=== PATIENT | male | born 1960 | race Caucasian/White ===

== ENCOUNTER 2017-05-20 21:10 | Emergency (ER) | payer MEDICAID ==
[2017-05-20 22:01] LABS: % BASOPHILS 0.1 % (0.0-2.0); % EOSINOPHILS 4.6 % (0.0-5.0); % LYMPHOCYTES 34.4 % (20.0-50.0); % MONOCYTES 11.3 % (2.0-10.0); % NEUTROPHILS 49.6 % (40.0-80.0); HEMOGLOBIN 12.1 gm/dL (13.2-17.3); MEAN CELL VOLUME 89.3 fl (80-99); MEAN CORPUSCULAR HGB CONC 34.7 pg (28.0-36.0); MEAN PLATELET VOLUME 7.5 fl; NEUTROPHILE ABSOLUTE 3.8 Th/cmm (1.8-8.0); PLATELET COUNT 276 Th/cmm (150-400); RED BLOOD COUNT 3.92 Mil/cmm (4.30-5.70); RED CELL DISTRIBUTION WIDTH 12.6 % (11.5-20.0)
[2017-05-20 22:03] LABS: WHITE BLOOD COUNT 7.5 Th/cmm (4.8-10.8)
--- NOTE | 2017-05-20 22:14 | ED Physician Chart ---
Chief Complaint/HPI - Patient Information Date Seen:: 05/20/17 Time Seen:: 21:21 Chief Complaint:: ABDOMINAL PAIN History of Present Illness:: THIS IS A 56 YO MALE WHO STATES THAT HE HAS A HERNIA AND IT IS CAUSING HIM PAIN. HE DENIES FEVER, NAUSEA AND VOMITING. Allergies:: Allergies Allergy/AdvReac Type Severity Reaction Status Date / Time morphine Allergy Verified 05/20/17 21:22 Vitals:: Vital Signs - 8 hr 05/20/17 21:15 Temp 98.1 F HR 71 RR 18 BP 129/79 O2 Sat % 99 Historian:: Patient Review:: Nurse's Note Reviewed, Old Chart Reviewed, Transfer documents Reviewed Review of Systems - Review of Systems General/Constitutional: No fever, No chills, No weight loss, No weakness, No diaphoresis, No edema, No loss of appetite Skin: No skin lesions, No rash, No bruising Head: No headache, No light-headedness Eyes: No loss of vision, No pain, No diplopia ENT: No earache, No nasal drainage, No sore throat, No tinnitus Neck: No neck pain, No swelling, No thyromegaly, No stiffness, No mass noted Cardio Vascular: No chest pain, No palpitations, No PND, No orthopnea, No edema Pulmonary: No SOB, No cough, No sputum, No wheezing GI: No nausea, No vomiting, No diarrhea, Pain, No melena, No hematochezia, No constipation, No hematemesis, Other (RIGHT INQUINAL HERNIA ) G/U: No dysuria, No frequency, No hematuria Musculoskeletal: No bone or joint pain, No back pain, No muscle pain Endocrine: No polyuria, No polydipsia Psychiatric: No prior psych history, No depression, No anxiety, No suicidal ideation Hematopoietic: No bruising, No lymphadenopathy Allergic/Immuno: No urticaria, No angioedema Neurological: No syncope, No focal symptoms, No weakness, No paresthesia, No headache, No seizure, No dizziness, No confusion, No vertigo Past Medical History - Past Medical History Obtainable: Yes Past Medical History: Dyslipidemia, Other (PSYCHOSIS) Social History: Non Smoker, No Alcohol, No Drug Use, Single Surgical History: None Psychiatricy History: Schizophrenia Medication: Reviewed Family Medical History - Family Member Mother History Unknown: Yes Physical Exam - Physical Examination General/Constitutional: Awake, Well-developed, well-nourished, Alert, No distress, GCS 15, Non-toxic appearing, Ambulatory Head: Atraumatic Eyes: Lids, conjuctiva normal, PERRL, EOMI Skin: Nl inspection, No rash, No skin lesions, No ecchymosis, Well hydrated, No lymphadenopathy ENMT: External ears, nose nl, Nasal exam nl, Lips, teeth, gums nl Neck: Nontender, Full ROM w/o pain, No JVD, No nuchal rigidity, No bruit, No mass, No stridor Respiratory: Nl effort/Exclusion, Clear to Auscultation, No Wheeze/Rhonchi/Rales Cardio Vascular: RRR, No murmur, gallop, rubs, NL S1 S2 GI: No organomegaly, Normal BS's, Nondistended, No mass/bruits, No McBurney tenderness Other GI comments:: RIGHT INQUINAL HERNIA (REDUCIBLE) THE AREA IS NOT RED, HOT WITH NO SWELLING BUT TENDER ON DEEP PALPATION : No CVA tenderness Extremities: No tenderness or effusion, Full ROM, normal strength in all extremities, No edema, Normal digits & nails Neuro/Psych: Alert/oriented, DTR's symmetric, Normal sensory exam, Normal motor strength, Normal gait, No focal deficits Other Neuro/Psych comments:: THIS PATIENT ALSO HAS SOME MENTAL ISSUES AND I SPEAKING WITH HIMSELF Misc: normal gait, Normal back, No paraspinal tenderness Labs/Radiology/EKG Results - Lab Results Results: Laboratory Tests 05/20/17 21:53 WBC 7.5 D RBC 3.92 L Hgb 12.1 L Hct 35.0 L MCV 89.3 MCH 31.0 H MCHC Differential 34.7 RDW 12.6 Plt Count 276 MPV 7.5 Neutrophils % 49.6 Lymphocytes % 34.4 Monocytes % 11.3 H Eosinophils % 4.6 Basophils % 0.1 Abnormal Lab Results 05/20/17 05/20/17 05/20/17 21:53 21:53 21:53 WBC 7.5 D RBC 3.92 L Hgb 12.1 L Hct 35.0 L MCV 89.3 MCH 31.0 H MCHC Differential 34.7 RDW 12.6 Plt Count 276 MPV 7.5 Neutrophils % 49.6 Lymphocytes % 34.4 Monocytes % 11.3 H Eosinophils % 4.6 Basophils % 0.1 Sodium 134 L Potassium 2.9 L* Chloride 104 Carbon Dioxide 26.2 Anion Gap 6.6 L BUN 20 Creatinine 0.8 Est GFR ( Amer) > 60.0 Est GFR (Non-Af Amer) > 60.0 BUN/Creatinine Ratio 25.0 Glucose 105 Calcium 9.2 Total Bilirubin 0.5 AST 42 H ALT 27 Alkaline Phosphatase 82 Troponin I 0.01 Total Protein 6.4 Albumin 4.2 Globulin 2.2 Albumin/Globulin Ratio 1.9 H Assessment - Assessment General Assessment: LOW KCL HERNIA ( old) and not incarcerated) ED Septic Shock - . Is Septic Shock (SBP<90, OR Lactate>4 mmol\L) present?: No - <6hrs of presentation: Vital Signs: Vital Signs - 8 hr 05/20/17 21:15 Temp 98.1 F HR 71 RR 18 BP 129/79 O2 Sat % 99 Reassessment (Disposition) - Reassessment Reassessment Condition:: Improved - Diagnosis Diagnosis:: hypokalemia hernia pain - Aftercare/Follow up Instructions Aftercare/Follow-Up Instructions:: Counseled pt regarding lab results/diagnosis & need follow up, Refer to Discharge Instructions, Counseled pt & family regarding lab results/diagnosis & need follow up - Patient Disposition Discharge/Transfer:: Home Condition at Disposition:: Improved ED Discharge Plan - Patient Disposition Admit/Discharge/Transfer: PT DISCHARGED HOME
[2017-05-20 22:25] LABS: ALB/GLOB RATIO 1.9 (1.0-1.8); ALKALINE PHOSPHATASE 82 U/L (34-104); ANION GAP 6.6 (7.0-16.0); BILIRUBIN,TOTAL 0.5 mg/dL (0.3-1.0); BUN - UREA NITROGEN 20 mg/dL (7-25); CALCIUM SERUM 9.2 mg/dL (8.6-10.3); CARBON DIOXIDE 26.2 mEq/L (21.0-31.0); CHLORIDE 104 mEq/L (98-107); CREATININE - SERUM 0.8 mg/dL (0.7-1.3); GLUCOSE 105 mg/dL (70-105); SGOT 42 U/L (13-39); SGPT/ALT 27 U/L (7-52); SODIUM SERUM 134 mEq/L (136-145)
[2017-05-20 22:28] LABS: POTASSIUM SERUM 2.9 mEq/L (3.5-5.1)
[2017-05-20] MEDS ORDERED: Potassium Chloride Elixir 20 mEq /15 mL UDC GT ONE (22:29)
[2017-05-20] MEDS ORDERED: Potassium Chloride Elixir 20 mEq /15 mL UDC PO ONE (22:29)
[2017-05-20] MEDS ORDERED: Potassium Chloride Elixir 20 mEq /15 mL UDC ONE (23:36)
== END 2017-05-20 23:45 | disposition home or self-care (01) ==
LOC: ER 21:10
DX: E87.6 Hypokalemia (principal); K46.9 Unspecified abdominal hernia without obstruction or gangrene; E78.5 Hyperlipidemia, unspecified; Z88.6 Allergy status to analgesic agent
CPT/HCPCS: 36415-UA; 80053-TC; 84443-TC; 84484-TC; 85025-TC; 86592-TC; Z7502

== ENCOUNTER 2017-12-04 10:42 | Emergency (ER) | payer MEDICAID ==
--- NOTE | 2017-12-04 11:24 | ED Physician Chart ---
ED Chief Complaint/HPI - Patient Information Date Seen:: 12/04/17 Time Seen:: 11:15 Chief Complaint:: right inguinal hernia History of Present Illness:: Patient has a painful right viral hernia. He has no vomiting. He's had previous right inguinal hernia repair. Allergies:: Allergies Allergy/AdvReac Type Severity Reaction Status Date / Time morphine Allergy Verified 09/26/17 14:13 Vitals:: Vital Signs - 8 hr 12/04/17 10:56 Temp 98.1 F HR 61 RR 16 BP 157/94 O2 Sat % 98 Historian:: Patient Review:: Nurse's Note Reviewed ED Review of Systems - Review of Systems General/Constitutional: No fever, No chills Skin: No skin lesions Head: No headache Eyes: No loss of vision ENT: No earache Neck: No neck pain Cardio Vascular: No chest pain, No palpitations Pulmonary: No SOB GI: No nausea, No vomiting, No diarrhea, Pain G/U: No dysuria Musculoskeletal: No bone or joint pain, No back pain, No muscle pain Endocrine: No polyuria, No polydipsia Psychiatric: No prior psych history, No depression, No anxiety Hematopoietic: No bruising, No lymphadenopathy Allergic/Immuno: No urticaria, No angioedema Neurological: No syncope, No focal symptoms ED Past Medical History - Past Medical History Past Medical History: No significant medical hx Family History: None Social History: Smoker, No Alcohol Surgical History: Hernia Psychiatricy History: None Family Medical History - Family Member Mother History Unknown: Yes Ethnicity: Non- Living Status: Unknown ED Physical Exam - Physical Examination General/Constitutional: Well-developed, well-nourished, Alert, No distress Head: Atraumatic Eyes: Lids, conjuctiva normal Skin: Nl inspection, No rash, No skin lesions, No ecchymosis ENMT: External ears, nose nl, Oropharynx nl Neck: No nuchal rigidity Respiratory: Nl effort/Exclusion, Clear to Auscultation Cardio Vascular: RRR, No murmur, gallop, rubs GI: No organomegaly, Nondistended Other GI comments:: Large right inguinal hernia : No CVA tenderness Extremities: Normal digits & nails Neuro/Psych: Alert/oriented, Normal sensory exam Misc: Normal back ED Assessment - Assessment General Assessment: I instructed patient to follow up with a general surgeon. Patient's right lateral hernia is not strangulated so emergency surgery is not indicated. ED Septic Shock - . Is Septic Shock (SBP<90, OR Lactate>4 mmol\L) present?: No - <6hrs of presentation: Vital Signs: Vital Signs - 8 hr 12/04/17 10:56 Temp 98.1 F HR 61 RR 16 BP 157/94 O2 Sat % 98 ED Reassessment (Disposition) - Reassessment Reassessment Condition:: Unchanged - Diagnosis Diagnosis:: Right bilateral hernia - Aftercare/Follow up Instructions Aftercare/Follow-Up Instructions:: Refer to Discharge Instructions - Patient Disposition Discharge/Transfer:: Home Condition at Disposition:: Stable, Unchanged
== END 2017-12-04 11:45 | disposition home or self-care (01) ==
LOC: ER 10:42
DX: K40.90 Unilateral inguinal hernia, without obstruction or gangrene, not specified as recurrent (principal); Z59.0 Homelessness
CPT/HCPCS: Z7502

== ENCOUNTER 2018-12-02 11:50 | Emergency (ER) | payer MEDICAID ==
--- NOTE | 2018-12-02 13:49 | ED Physician Chart ---
ED Chief Complaint/HPI - Patient Information Date Seen:: 12/02/18 Time Seen:: 11:50 Chief Complaint:: Insect Bite History of Present Illness:: onset x 3 days of RRF redness, swelling, and erythema after an insect bite 3 days ago; pt denies trauma, LOC, ALOC, AMS, H/As, S/T, neck pain, cough, C/P, SOB, Abd. Pain, A/N/V/D/C, weakness, dizziness, pain, paresthesias, vertigo, bleeding, or urinary s/s; pt's last tetanus shot: > 5 years Allergies:: Allergies Allergy/AdvReac Type Severity Reaction Status Date / Time morphine Allergy Verified 09/26/17 14:13 Vitals:: Vital Signs - 8 hr 12/02/18 12/02/18 11:54 12:24 Temp 98.7 F 98.7 F HR 85 85 RR 18 16 BP 149/94 149/94 O2 Sat % 98 98 Historian:: Patient, EMS Review:: Nurse's Note Reviewed, Old Chart Reviewed, EMS run form Reviewed ED Review of Systems - Review of Systems General/Constitutional: No fever, No chills, No weight loss, No weakness, No diaphoresis, No edema, No loss of appetite Skin: No skin lesions, No rash, No bruising Head: No headache, No light-headedness Eyes: No loss of vision, No pain, No diplopia ENT: No earache, No nasal drainage, No sore throat, No tinnitus Neck: No neck pain, No swelling, No thyromegaly, No stiffness, No mass noted Cardio Vascular: No chest pain, No palpitations, No PND, No orthopnea, No edema Pulmonary: No SOB, No cough, No sputum, No wheezing GI: No nausea, No vomiting, No diarrhea, No pain, No melena, No hematochezia, No constipation, No hematemesis G/U: No dysuria, No frequency, No hematuria, No nacturia Musculoskeletal: No bone or joint pain, No back pain, No muscle pain Endocrine: No polyuria, No polydipsia Psychiatric: No prior psych history, No depression, No anxiety, No suicidal ideation, No homicidal ideation, No auditory hallucination, No visual hallucination Hematopoietic: No bruising, No lymphadenopathy Allergic/Immuno: No urticaria, No angioedema Neurological: No syncope, No focal symptoms, No weakness, No paresthesia, No headache, No seizure, No dizziness, No confusion, No vertigo ED Past Medical History - Past Medical History Obtainable: Yes Past Medical History: HTN Family History: HTN Social History: Non Smoker, No Alcohol, No Drug Use, Single, Homeless Surgical History: Hernia Psychiatricy History: None Medication: Reviewed Family Medical History - Family Member Mother History Unknown: Yes Ethnicity: Non- Living Status: Unknown ED Physical Exam - Physical Examination General/Constitutional: Awake, Well-developed, well-nourished, Alert, No distress, GCS 15, Non-toxic appearing, Ambulatory Head: Atraumatic Eyes: Lids, conjuctiva normal, PERRL, EOMI Skin: Nl inspection, No rash, No skin lesions, No ecchymosis, Well hydrated, No lymphadenopathy Other Skin comments:: RRF: Localized Cellulitis around a PW at dorsal DIP of RRF; no FBs; no septic joints; no joint tenderness; full active ROMs of all joints; no ligament instability; no ligament laxity; good motor, tendon, and sensory functions; good NV functions ENMT: External ears, nose nl, TM canals nl, Nasal exam nl, Lips, teeth, gums nl , Oropharynx nl, Tonsils nl Neck: Nontender, Full ROM w/o pain, No JVD, No nuchal rigidity, No bruit, No mass, No stridor Other Neck comments:: supple; no meningeal signs; no cervical tenderness Respiratory: Nl effort/Exclusion, Clear to Auscultation, No Wheeze/Rhonchi/Rales Cardio Vascular: RRR, No murmur, gallop, rubs, NL S1 S2, Carotid/Femoral/Distal pulses equal bilaterally GI: No tenderness/rebounding/guarding, No organomegaly, No hernia, Normal BS's, Nondistended, No mass/bruits, No McBurney tenderness, Rectum exam nl Other GI comments:: no pulsatile masses : No CVA tenderness Extremities: No tenderness or effusion, Full ROM, normal strength in all extremities, No edema, Normal digits & nails Other Extremities comments:: as above Neuro/Psych: Alert/oriented, DTR's symmetric, Normal sensory exam, Normal motor strength, Judgement/insight normal, Mood normal, Normal gait, No focal deficits Other Neuro/Psych comments:: no focal signs Misc: Normal back, No paraspinal tenderness ED Assessment Comments: Td 0.5cc IM given ED Septic Shock - . Is Septic Shock (SBP<90, OR Lactate>4 mmol\L) present?: No - <6hrs of presentation: Vital Signs: Vital Signs - 8 hr 12/02/18 12/02/18 11:54 12:24 Temp 98.7 F 98.7 F HR 85 85 RR 18 16 BP 149/94 149/94 O2 Sat % 98 98 ED Reassessment (Disposition) - Reassessment Reassessment:: pt is asymptomatic upon discharge Reassessment Condition:: Improved - Diagnosis Diagnosis:: RRF Cellulitis; RRF Wound; Insect Bite Wound; Right Ring Finger Localized Cellulitis; Insect Bite; Hypertension - Aftercare/Follow up Instructions Aftercare/Follow-Up Instructions:: Counseled pt regarding lab results/diagnosis & need follow up, Refer to Discharge Instructions, Counseled pt & family regarding lab results/diagnosis & need follow up Medication Prescribed:: Rx: Keflex 500mg po qid x 10 days; Neosporin Ointment bid x 14 days; Warm Compresses/Heating Pads to affected areas; Skin Care Instructions; take all medications as prescribed - Patient Disposition Discharge/Transfer:: Home Condition at Disposition:: Stable, Improved (RTER prn if existing s/s reoccur and/or get worse and/or any other new s/s occur; Have Blood Pressure re-checked in one day by PMD; ACIs given for all above Dx; Refer to Hand Specialist/ Vascular Surgeon/Orthopedist/[employer] B[employer] Builder JAMAR; F/U with PMD in one day or prn; RTER prn if concerned)
== END 2018-12-02 12:47 | disposition short-term general hospital (02) ==
LOC: ER 11:50
DX: S60.464A Insect bite (nonvenomous) of right ring finger, initial encounter (principal); L03.011 Cellulitis of right finger; I10 Essential (primary) hypertension; Z59.0 Homelessness; W57.XXXA Bitten or stung by nonvenomous insect and other nonvenomous arthropods, initial encounter; Y93.89 Activity, other specified; Y92.89 Other specified places as the place of occurrence of the external cause; Y99.8 Other external cause status
CPT/HCPCS: Z7502